=== PATIENT | female | born 1995 | race Caucasian/White ===

== ENCOUNTER → 2019-10-14 17:13 | Outpatient (CLI) | payer OTHER, SELFPAY ==
[2019-10-14 17:54] LABS: Basophils % 0.4 % (0.1-2.0); Eosinophils # 0.2 K/mm3 (0.0-0.4); Eosinophils % 2.1 % (0.1-12.0); Hematocrit 47.3 % (37.0-47.0); Hemoglobin 15.6 g/dL (12.2-16.2); Lymphocytes # 3.6 K/mm3 (0.7-4.5); Lymphocytes % 35.5 % (10-50); Mean Corpuscular HGB Conc 33.1 g/dL (31.8-35.4); Mean Corpuscular Hemoglobin 29.1 pg (27.0-31.2); Mean Corpuscular Volume 87.9 fl (81-99); Mean Platelet Volume 10.2 fl (7.4-10.4); Monocytes # 0.4 K/mm3 (0.1-1.0); Monocytes % 4.3 % (1.7-9.3); Neutrophils # 5.8 K/mm3 (1.8-7.8); Neutrophils % 57.7 % (37.0-80.0); Platelet Count 111 K/mm3 (142-424); Red Blood Count 5.38 M/mm3 (4.20-5.40); White Blood Count 10.1 K/mm3 (4.8-10.8)
== END ==
PROVIDERS: Visit Provider Nurse Practitioner Family
DX: L02.92 Furuncle, unspecified (principal); M79.604 Pain in right leg; M79.605 Pain in left leg
CPT/HCPCS: 36415; 85025

== ENCOUNTER → 2021-08-09 13:16 | Outpatient (CLI) | payer OTHER, SELFPAY ==
--- NOTE | 2021-08-09 13:21 | US_ITS ---
FINAL REPORT CLINICAL HISTORY: confirm dates; maternal obesity FINDINGS: TRANSABDOMINAL ULTRASOUND, Single intrauterine is present. Cardiac activity is confirmed at 155 beats per minute. Appropriate amount of fluid is present. Placenta is posterior. Growth parameters are as follows: BPD: 3.2 cm consistent with 16 weeks 0 days. Head circumference: 11.5 cm consistent with 15 weeks 5 days. Abdominal circumference: 10 cm consistent with 16 weeks 0 days. Femur length: 2.1 cm consistent with 16 weeks 1 day. Estimated gestational age: 16 weeks 0 day. IMPRESSION: Single living IUP with estimated gestational age of 16 weeks 0 day. Reviewed, Interpreted and Dictated by Pedro Peralta MD Transcribed by Rohith Michaels Authenticated by Pedro Peralta MD on 08/09/2021 03:14:[address] [facility]
[2021-08-09 14:27] LABS: Basophils # 0.1 K/mm3 (0-0.2); Basophils % 0.7 % (0.1-2.0); Eosinophils # 0.2 K/mm3 (0.0-0.4); Eosinophils % 1.5 % (0.1-12.0); Hematocrit 40.4 % (37.0-47.0); Hemoglobin 13.3 g/dL (12.2-16.2); Lymphocytes # 3.5 K/mm3 (0.7-4.5); Lymphocytes % 26.3 % (10-50); Mean Corpuscular HGB Conc 32.9 g/dL (31.8-35.4); Mean Corpuscular Hemoglobin 29.6 pg (27.0-31.2); Mean Platelet Volume 10.5 fl (7.4-10.4); Monocytes # 0.4 K/mm3 (0.1-1.0); Monocytes % 3.1 % (1.7-9.3); Neutrophils # 9.2 K/mm3 (1.8-7.8); Neutrophils % 68.4 % (37.0-80.0); Platelet Count 272 K/mm3 (142-424); Red Blood Count 4.49 M/mm3 (4.20-5.40); Red Cell Distribution Width 13.5 % (11.5-17.5); White Blood Count 13.4 K/mm3 (4.8-10.8)
[2021-08-09 15:44] LABS: HCG,Quantitative 11622 mIU/ml (0-5.42)
[2021-08-11 07:32] LABS: HIV Screen 4th Generation wRfx Non Reactive (Non Reactive); Hepatitis B Surface Antigen Negative (Negative); Hepatitis C Antibody >11.0 s/co ratio (0.0-0.9)
[2021-08-11 08:14] LABS: Rubella Antibodies, IgG 1.32 index (Immune >0.99)
[2021-08-11 11:11] LABS: Rapid Plasma Reagin Ab Titer Non Reactive (NonRea<1:1)
== END ==
PROVIDERS: PCP Emergency Medicine; Visit Provider Obstetrics & Gynecology
DX: Z34.90 Encounter for supervision of normal pregnancy, unspecified, unspecified trimester (principal)
CPT/HCPCS: 36415; 76805; 84702; 85025; 86592; 86703; 86762; 86850; 87340; 87380; G0432

== ENCOUNTER 2022-04-07 21:14 | Emergency (ER) | payer OTHER, SELFPAY ==
[2022-04-07 21:15] VITALS: BP 134/75; PULSE 88; RESP 18; TEMP 37.2; O2SAT 97; BMI 43.0
[2022-04-07 21:54] LABS: Influenza A, PCR Not Detected (NotDetected); Influenza B, PCR Not Detected (NotDetected)
--- NOTE | 2022-04-07 22:11 | XR_ITS ---
PROCEDURE INFORMATION: Exam: XR Chest Exam date and time: 04/07/2022 10:43 PM Age: 26 years old Clinical indication: Other: Congestion TECHNIQUE: Imaging protocol: Radiologic exam of the chest. Views: 1 view. COMPARISON: No relevant prior studies available. FINDINGS: Lungs: Unremarkable. No consolidation. Pleural spaces: Unremarkable. No pleural effusion. No pneumothorax. Heart/Mediastinum: Unremarkable. No cardiomegaly. Bones/joints: Unremarkable. IMPRESSION: No acute cardiopulmonary abnormality.
[2022-04-07 22:15] LABS: Coronavirus 19, PCR Detected (NotDetected)
[2022-04-07 22:24] LABS: Microscopic, Urine URINE MICROSCOPIC (MICROSCOPIC)
[2022-04-07 22:28] LABS: Appearance,Urine CLEAR (Clear); Bilirubin,Urine Negative (Negative); Blood, Urine 3+ (Negative); Color,Urine YELLOW (Yellow); Glucose,Urine (UA) Negative (Negative); Ketones,Urine Negative (Negative); Leukocyte Esterase,Urine Negative (Negative); Nitrate,Urine Negative (Negative); PH,Urine 6.5 (5.0-8.5); Protein,Urine Negative (Negative)
[2022-04-07 22:31] LABS: Urine Pregnancy, HCG Qual. Negative (Negative)
[2022-04-07 22:32] LABS: RBC,Urine 20-50 #/hpf (0-3)
--- NOTE | 2022-04-08 00:33 | HMH.EDURI ---
Discharge Plan Disposition Patient Disposition: Home, Self-Care Prescriptions Prescriptions: No Action sumatriptan succinate 50 mg tablet 50 mg PO Q2H PRN (Reason: migraine headache) Qty: 14 0RF Rx Instructions: do not exceed 4 doses per 24 hrs gabapentin 100 mg capsule 200 mg PO TID 30 Days Qty: 180 0RF prednisone 20 mg tablet 20 mg PO BID 5 Days Qty: 10 0RF naproxen 500 mg tablet 500 mg PO BID PRN (Reason: pain) Qty: 28 0RF ondansetron 4 mg tablet,disintegrating 4 mg PO Q4H PRN (Reason: nausea and vomiting) Qty: 30 4RF levonorgestrel-ethinyl estrad 0.1-20 mg-mcg tablet PO DAILY amitriptyline 50 mg tablet 50 mg PO QHS Qty: 30 2RF Referrals Follow up/Referrals: Irma Tiwari APRN [Primary Care Provider] - See instructions Clinical Impressions Clinical Impression: COVID-19 Instructions Patient Instructions: DI for COVID-19 (Suspected or Confirmed ) Discharge ED Provider: Josh Lopez URI/Sore Throat HPI General Chief Complaint: Upper Respiratory Infection Stated Complaint: body aches, runny nose sore throat Time Seen by Provider: 04/08/22 00:34 Mode of Arrival: Ambulatory Source of Information: Patient and Medical Record Limitations: No Limitations Description of Symptoms (Recalled from ER Triage Doc. by RN): pt c/o body aches, NUNEZ, sore throat, congestion that started at 4 this morning History of Present Illness HPI Narrative: achey and sore throat w/o rash with exposure to covid-19 MD Complaint: fever, sore throat and nasal congestion Onset (ago): hour(s) Duration: intermittent Severity: moderate Relieving factors: OTC cold medicine Able to tolerate fluids by mouth: Yes Context: sick contacts Associated symptoms: denies other symptoms Treatments prior to arrival: acetaminophen Related Data Home Medications Medication Instructions Recorded Confirmed levonorgestrel-ethinyl estradiol tab PO DAILY 09/29/19 09/29/19 0.1 mg-20 mcg tablet Previous Rx's Medication Instructions Recorded amitriptyline 50 mg tablet 50 mg PO QHS #30 tabs 09/29/19 gabapentin 100 mg capsule 200 mg PO TID 30 days #180 caps 11/09/19 sumatriptan succinate 50 mg tablet 50 mg PO Q2H PRN migraine headache 11/09/19 #14 tabs naproxen 500 mg tablet 500 mg PO BID PRN pain #28 tabs 11/25/19 prednisone 20 mg tablet 20 mg PO BID 5 days #10 tabs 11/25/19 ondansetron 4 mg disintegrating 4 mg PO Q4H PRN nausea and 08/09/21 tablet vomiting #30 tabs Allergies Allergy/AdvReac Type Severity Reaction Status Date / Time cephalexin Allergy Intermediate NA-NAUSEA/V Unverified 09/29/19 13:09 OMITING codeine Allergy Intermediate I-HIVES Unverified 09/29/19 13:09 PFSH PFSH Social History Smoking Status: Never smoker alcohol intake: never substance use type: denies use current occupational status: unemployed Travel in the last 8 weeks: None ROS Obtained: Yes All systems reviewed & no additional complaints except as documented Physical Exam General General appearance: alert Head Head exam: normocephalic Eye Eye exam: Present PERRL and EOMI ENT ENT exam: Present mucous membranes moist Neck Neck exam: Present trachea midline Respiratory Respiratory exam: Present normal lung sounds bilaterally Cardiovascular Cardiovascular exam: Present regular rate; Absent systolic murmur Abdominal Exam Abdominal exam: Present soft Extremities Exam Extremities exam: Present normal inspection Neurological Exam Neurological exam: Present alert, oriented X3 and CN II-XII intact Psychiatric Psychiatric exam: Present normal affect Skin Skin exam: Absent rash Medical Decision Making Medical Records Medical records reviewed: Yes I reviewed the patient's medical records. Mike Inquiry Pt receiving controlled substance: No Vital Signs: 04/07/22 21:15 04/08/22 01:08 Temperature 98.9 F 98.9 F Temperature Source Oral Oral Pulse Rate 81 Pulse Rate [Right] 88 R
[2022-04-08 01:08] VITALS: BP 124/85; PULSE 81; RESP 18; TEMP 37.2; O2SAT 97
== END 2022-04-08 01:08 | disposition home or self-care (01) ==
PROVIDERS: Emergency Provider Emergency Medicine; PCP Nurse Practitioner Family
DX: U07.1 COVID-19 (principal); R51.9 Headache, unspecified; J02.9 Acute pharyngitis, unspecified
CPT/HCPCS: 71045; 81001; 81025; 99283; C9803; U0003; U0005

== ENCOUNTER 2023-09-25 18:29 | Outpatient (CLI) | payer OTHER, SELFPAY ==
[2023-09-25 18:47] VITALS: BMI 50.3
[2023-09-25 18:56] LABS: Microscopic, Urine URINE MICROSCOPIC (MICROSCOPIC)
[2023-09-25 18:59] LABS: Appearance,Urine SL CLOUDY (Clear); Bilirubin,Urine Negative (Negative); Blood, Urine Negative (Negative); Color,Urine YELLOW (Yellow); Glucose,Urine (UA) Negative (Negative); Ketones,Urine Negative (Negative); Leukocyte Esterase,Urine TRACE (Negative); Nitrate,Urine Negative (Negative); PH,Urine 6.5 (5.0-8.5); Protein,Urine Negative (Negative); Specific Gravity, Urine 1.025 (1.005-1.030)
[2023-09-25 19:18] VITALS: BP 137/77; PULSE 96; RESP 18; TEMP 37; O2SAT 96; BMI 53.6
[2023-09-25 19:22] LABS: Amphetamine/Metha Screen,Urine Negative ng/ml (<1000)
[2023-09-25 19:23] LABS: Barbiturates Screen,Urine Negative ng/ml (<200)
[2023-09-25 19:24] LABS: Benzodiazepines Screen,Urine Negative ng/ml (<200)
[2023-09-25 19:26] LABS: Amorphous Sediment,Urine 1+ /lpf; Bacteria,Urine Trace /lpf; Cannabinoid Screen,Urine Negative ng/ml (<50); WBC,Urine Occasional #/hpf (0-3)
[2023-09-25 19:27] LABS: Cocaine Screen,Urine Negative ng/ml (<300); Methadone Screen,Urine Negative ng/ml (<300)
[2023-09-25 19:28] LABS: Opiate Screen,Urine Negative ng/ml (<300)
[2023-09-25 19:29] LABS: Phencyclidine Screen,Urine Negative ng/ml (<25)
== END 2023-09-25 19:58 | disposition home or self-care (01) ==
LOC: OBOUT 18:32 → OB 18:33
PROVIDERS: PCP Nurse Practitioner Family; Visit Provider Obstetrics & Gynecology
DX: O13.2 Gestational [pregnancy-induced] hypertension without significant proteinuria, second trimester (principal); Z3A.24 24 weeks gestation of pregnancy
CPT/HCPCS: 80307; 81001; G0463

== ENCOUNTER 2024-04-23 15:40 | Emergency (ER) | payer OTHER, SELFPAY ==
[2024-04-23 15:42] VITALS: BP 144/81; PULSE 72; RESP 18; TEMP 36.6; O2SAT 99; BMI 36.2
--- NOTE | 2024-04-23 16:35 | HMH.EDGENADL ---
Discharge Plan Disposition Patient Disposition: Home, Self-Care Condition: Good Prescriptions Prescriptions: New naproxen 500 mg tablet 500 mg PO BID Qty: 20 0RF lidocaine [Lidoderm] 5 % adhesive patch,medicated 1 patch topical DAILY Qty: 15 0RF Rx Instructions: leave on most painful area for up to 12 hrs No Action sumatriptan succinate 50 mg tablet 50 mg PO Q2H PRN (Reason: migraine headache) Qty: 14 0RF Rx Instructions: do not exceed 4 doses per 24 hrs gabapentin 100 mg capsule 200 mg PO TID 30 Days Qty: 180 0RF prednisone 20 mg tablet 20 mg PO BID 5 Days Qty: 10 0RF naproxen 500 mg tablet 500 mg PO BID PRN (Reason: pain) Qty: 28 0RF ondansetron 4 mg tablet,disintegrating 4 mg PO Q4H PRN (Reason: nausea and vomiting) Qty: 30 4RF levonorgestrel-ethinyl estrad 0.1-20 mg-mcg tablet PO DAILY amitriptyline 50 mg tablet 50 mg PO QHS Qty: 30 2RF Referrals Follow up/Referrals: Irma Tiwari APRN [Primary Care Provider] - See instructions Activity Restrictions/Add. Instructions Additional Instructions/Restrictions: You were evaluated in the emergency department today. Please molded goods spot picker your prescriptions at the pharmacy. You may also take Tylenol for 4 to 6 hours as needed for pain. Return to the emergency department for new or worsening symptoms. Follow-up with your primary care provider. Clinical Impressions Clinical Impression: Pain at injection site Stand Alone Forms Stand Alone Forms: Work/School Release Print Language Print Language: Marshallese Discharge ED Provider: Isabel Lama General Adult HPI General Chief complaint: Skin/Abscess/Foreign Body Stated complaint: Left hip pain,had Depo injestion 04/22/24 Time Seen by Provider: 04/23/24 16:06 Mode of Arrival: Ambulatory Source of Information: Patient Limitations: No Limitations Description of Symptoms (Recalled from ER Triage Doc. by RN): pain in injection site of depo shot History of Present Illness HPI narrative: This patient is a 28-year-old female with a history of obesity presenting to the emergency department for evaluation with concern for pain in her left hip after head Depo shot yesterday afternoon. She reports that she gets some all the time and has been on this for a long time, but yesterday they injected much higher than they typically do. She is not having pain in her left hip joint, especially with walking. She states that it woke her up from sleep. She denies fevers, chills, skin color changes, numbness, tingling, or radiation of pain. Related Data Home Medications ?Medication ?Instructions ?Recorded ?Confirmed levonorgestrel-ethinyl estradiol tab PO DAILY 09/29/19 09/29/19 0.1 mg-20 mcg tablet Previous Rx's ?Medication ?Instructions ?Recorded amitriptyline 50 mg tablet 50 mg PO QHS #30 tabs 09/29/19 gabapentin 100 mg capsule 200 mg (2 x 100 mg) PO TID 30 days 11/09/19 #180 caps sumatriptan succinate 50 mg tablet 50 mg PO Q2H PRN migraine headache 11/09/19 #14 tabs naproxen 500 mg tablet 500 mg PO BID PRN pain #28 tabs 11/25/19 prednisone 20 mg tablet 20 mg PO BID 5 days #10 tabs 11/25/19 ondansetron 4 mg disintegrating 4 mg PO Q4H PRN nausea and 08/09/21 tablet vomiting #30 tabs lidocaine 5 % topical patch 1 patch topical DAILY #15 ea 04/23/24 (Lidoderm) naproxen 500 mg tablet 500 mg PO BID #20 tabs 04/23/24 Allergies Allergy/AdvReac Type Severity Reaction Status Date / Time cephalexin Allergy Intermediate NA-NAUSEA/V Unverified 09/29/19 13:09 OMITING codeine Allergy Intermediate I-HIVES Unverified 09/29/19 13:09 [facility] Disclaimer: The information contained in this section may have been updated after the patient was seen, as this information can be updated by other users. Social History Smoking Status: Current every day smoker tobacco type: cigarettes packs per day: 1 alcohol intake: never substance use type: denies use current occupational status: unemployed Travel in the last 8 weeks: None ROS Obtained: Yes All systems reviewed & no additional complaints except as documented Physical Exam General General appearance: alert and in no apparent distress Head Head exam: atraumatic and normocephalic Eye Eye exam: Present normal appearance, PERRL and EOMI ENT ENT exam: Present normal exam, normal oropharynx, mucous membranes moist and normal external ear exam Neck Neck exam: Present normal inspection, full ROM and trachea midline; Absent tenderness Chest Chest inspection: Present normal inspection and symmetric chest wall rise; Absent tenderness Respiratory Respiratory exam: Present normal lung sounds bilaterally; Absent respiratory distress, wheezes, stridor or accessory muscle use Cardiovascular Cardiovascular exam: Present regular rate and normal rhythm Abdominal Exam Abdominal exam: Present soft; Absent distention, tenderness or guarding Extremities Exam Extremities exam: Present full ROM, tenderness (Tenderness to palpation of the left hip at injection site just above the iliac crest) and normal capillary refill; Absent edema Back Exam Back exam: Present normal inspection and full ROM; Absent tenderness Neurological Exam Neurological exam: Present alert, oriented X3, CN II-XII intact and normal gait; Absent motor sensory deficit Psychiatric Psychiatric exam: Present normal affect and normal mood Skin Skin exam: Present warm and dry Medical Decision Making Medical Records Medical records reviewed: Yes I reviewed the patient's medical records. Screening: Per USPSTF and CDC recommendations, given the prevalence of disease in our region, it is our hospital?s policy to screen for HIV and viral Hepatitis for all patients aged 18 and over and those with ongoing risk factors. Mike Inquiry Pt receiving controlled substance: No Vital Signs: 04/23/24 15:42 04/23/24 17:05 Temperature 97.9 F 97.9 F Temperature Source Oral Oral Pulse Rate 70 Pulse Rate [Right] 72 Respiratory Rate 18 18 Blood Pressure 140/78 Blood Pressure [Right Arm] 144/81 H Blood Pressure Mean [Right Arm] 102 Blood Pressure Source Automatic Cuff Blood Pressure Position Sitting 02 Sat by Pulse Oximetry 99 Oxygen Delivery Method Room Air Room Air Lab Data Lab results reviewed: Yes I reviewed the patient's lab results. Orders (Tests/Meds): ED MEDICATIONS Discontinued Medications Generic Name Dose Route Start Last Admin Trade Name Freq PRN Reason Stop Dose Admin Acetaminophen 1,000 mg 04/23/24 16:26 04/23/24 16:48 Acetaminophen 500mg Tab PO 04/23/24 16:27 1,000 mg ONCE ONE Administration Lidocaine 1 each 04/23/24 16:26 04/23/24 16:48 Lidocaine 5% Transdermal Patch TP 04/23/24 16:27 1 each ONCE ONE Administration Naproxen 500 mg 04/23/24 16:27 04/23/24 16:48 Naproxen 500mg Tablet PO 04/23/24 16:28 500 mg ONCE ONE Administration Medical Decision Narrative: In summary, this patient is a 28-year-old female presenting to the Emergency Department for evaluation of left hip pain after Depo shot. Differential diagnoses considered include but are not limited to localized inflammation, improper site injection, nerve injury. Ruling out the most morbid conditions drove assessment. On exam, the patient is very well-appearing. She still able to bear weight on her left hip and has intact range of motion, which suggests against septic arthritis or other acute pathology of the hip. I feel she likely has referred pain from site injection, as it appears to have been above her gluteus and her subcutaneous tissue. Exam is reassuring with no significant redness, warmth, or skin color changes. Ultimately, I feel that she is appropriate for discharge home with anti-inflammatories to treat localized pain. She was given instructions for supportive management, strict return precautions, and she was discharged after all questions were answered. Critical Care Critical Care Time Critical Care Time: No
[2024-04-23] MEDS: LIDOCAINE 5% TRANSDERMAL PATCH 1 EACH TP (16:48)
[2024-04-23] MEDS: ACETAMINOPHEN 500MG TAB 1000 MG PO (16:48)
[2024-04-23] MEDS: NAPROXEN 500MG TABLET 500 MG PO (16:48)
[2024-04-23 17:05] VITALS: BP 140/78; PULSE 70; RESP 18; TEMP 36.6; O2SAT 100
== END 2024-04-23 17:08 | disposition home or self-care (01) ==
PROVIDERS: Emergency Provider Emergency Medicine; PCP Nurse Practitioner Family
DX: T80.89XA Other complications following infusion, transfusion and therapeutic injection, initial encounter (principal); M25.552 Pain in left hip
CPT/HCPCS: 99283

== ENCOUNTER 2024-11-01 17:50 | Emergency (ER) | payer OTHER, SELFPAY ==
[2024-11-01 17:55] VITALS: BP 136/97; PULSE 71; RESP 16; TEMP 36.8; O2SAT 97; BMI 52.7
--- NOTE | 2024-11-01 17:59 | ED_ITS ---
<Statement entered by Lui Mensah MD - 11/01/24 23:19> I was consulted by the DA, and we discussed the complexity of the problems being addressed. I approved the treatment and management plan for this patient's care in the emergency department, thus performing a substantive portion of the medical decision making. Lui Mensah MD Discharge Plan Disposition Patient Disposition: Home, Self-Care Condition: Good Prescriptions Prescriptions: New amoxicillin-pot clavulanate 875-125 mg tablet 1 tab PO BID Qty: 20 0RF No Action sumatriptan succinate 50 mg tablet 50 mg PO Q2H PRN (Reason: migraine headache) Qty: 14 0RF Rx Instructions: do not exceed 4 doses per 24 hrs gabapentin 100 mg capsule 200 mg PO TID 30 Days Qty: 180 0RF prednisone 20 mg tablet 20 mg PO BID 5 Days Qty: 10 0RF naproxen 500 mg tablet 500 mg PO BID PRN (Reason: pain) Qty: 28 0RF ondansetron 4 mg tablet,disintegrating 4 mg PO Q4H PRN (Reason: nausea and vomiting) Qty: 30 4RF levonorgestrel-ethinyl estrad 0.1-20 mg-mcg tablet PO DAILY amitriptyline 50 mg tablet 50 mg PO QHS Qty: 30 2RF naproxen 500 mg tablet 500 mg PO BID Qty: 20 0RF lidocaine [Lidoderm] 5 % adhesive patch,medicated 1 patch topical DAILY Qty: 15 0RF Rx Instructions: leave on most painful area for up to 12 hrs Referrals Follow up/Referrals: Provider,Referral, [Primary Care Provider] - See instructions Activity Restrictions/Add. Instructions Additional Instructions/Restrictions: As we discussed I have sent in a prescription into your pharmacy. You need to establish care with dentistry for definitive management of your broken tooth. If you have any continued new or worsening signs or symptoms follow-up with your PCP return to the ER as needed. Clinical Impressions Clinical Impression: Dentalgia, Acute lymphadenitis Print Language Print Language: Lithuanian Discharge ED Provider: Lui Mensah General Adult HPI General Chief complaint: Dental/Oral Stated complaint: tooth pain with redness and swollen left jaw Time Seen by Provider: 11/01/24 17:59 Mode of Arrival: Ambulatory Description of Symptoms (Recalled from ER Triage Doc. by RN): Pt presents for evaluation of dental pain and swelling to her gum. Pt states she has had a cracked tooth x 3 years. Last night she developed swelling to her left upper gum and states it is draining. History of Present Illness HPI narrative: Patient presents for dentalgia. Patient presents for acute pain and swelling of her left lower jaw. Patient has a 3-year history of a cracked rear molar after dental procedure. She reports she started having pain and swelling and presents today for evaluation. Patient denies any difficulty swallowing muffled voice chest pain fever chills hemoptysis hematochezia melena shortness of breath nausea vomiting diarrhea. Related Data Home Medications ?Medication ?Instructions ?Recorded ?Confirmed levonorgestrel-ethinyl estradiol tab PO DAILY 09/29/19 09/29/19 0.1 mg-20 mcg tablet Previous Rx's ?Medication ?Instructions ?Recorded amitriptyline 50 mg tablet 50 mg PO QHS #30 tabs 09/29/19 gabapentin 100 mg capsule 200 mg (2 x 100 mg) PO TID 30 days 11/09/19 #180 caps sumatriptan succinate 50 mg tablet 50 mg PO Q2H PRN migraine headache 11/09/19 #14 tabs naproxen 500 mg tablet 500 mg PO BID PRN pain #28 tabs 11/25/19 prednisone 20 mg tablet 20 mg PO BID 5 days #10 tabs 11/25/19 ondansetron 4 mg disintegrating 4 mg PO Q4H PRN nausea and 08/09/21 tablet vomiting #30 tabs lidocaine 5 % topical patch 1 patch topical DAILY #15 ea 04/23/24 (Lidoderm) naproxen 500 mg tablet 500 mg PO BID #20 tabs 04/23/24 amoxicillin 875 mg-potassium 1 tab PO BID #20 tabs 11/01/24 clavulanate 125 mg tablet Allergies Allergy/AdvReac Type Severity Reaction Status Date / Time cephalexin Allergy Intermediate NA-NAUSEA/V Verified 11/01/24 18:29 OMITING codeine Allergy Intermediate I-HIVES Verified 11/01/24 18:29 [facility] Disclaimer: The information contained in this section may have been updated after the patient was seen, as this information can be updated by other users. Social History Smoking Status: Current every day smoker tobacco type: cigarettes packs per day: 1 alcohol intake: never substance use type: denies use current occupational status: unemployed Travel in the last 8 weeks: None Have you lived/traveled outside [place] in past 30 days?: No Contact w/someone who lives/traveled outside US past 30 days?: No Exposure to someone with infectious disease in past 14 days?: No Do you have a fever (greater than 100.4 F or 38 C)?: No Have you tested positive for COVID-19: No Exposed to someone with COVID-19 in past 14 days?: No Do you have a sore throat?: No Do you have a cough?: No Do you have any weakness?: No Do you have any diarrhea?: No Are you experiencing any unusual bleeding?: No Do you have any muscle aches/pain?: No Do you have any abdominal pain?: No Are you experiencing loss of taste or smell?: No Other Medical History Have you received the Flu Vaccine for this season: No Have you received the Pneumonia Vaccine: No ROS Obtained: Yes Systems reviewed as appropriate & no additional complaints except as documented Physical Exam General General appearance: alert and in no apparent distress Respiratory Respiratory exam: Present normal lung sounds bilaterally Cardiovascular Cardiovascular exam: Present regular rate Neurological Exam Neurological exam: Present alert and oriented X3 Medical Decision Making Medical Records Medical records reviewed: Yes I reviewed the patient's medical records. Screening: Per USPSTF and CDC recommendations, given the prevalence of disease in our region, it is our hospital?s policy to screen for HIV and viral Hepatitis for all patients aged 18 and over and those with ongoing risk factors. Mike Inquiry Pt receiving controlled substance: No Vital Signs: 11/01/24 17:55 11/01/24 18:51 Temperature 98.3 F 98.0 F Temperature Source Oral Pulse Rate 80 Pulse Rate [Right] 71 Respiratory Rate 16 16 Blood Pressure 137/79 Blood Pressure [Right Arm] 136/97 H Blood Pressure Mean [Right Arm] 110 Blood Pressure Source [Right Arm] Automatic Cuff Blood Pressure Position [Right Arm] Sitting 02 Sat by Pulse Oximetry 97 Oxygen Delivery Method Room Air Orders (Tests/Meds): ED MEDICATIONS Discontinued Medications Generic Name Dose Route Start Last Admin Trade Name Freq PRN Reason Stop Dose Admin Amoxicillin/Clavulanate Potassium 1 each 11/01/24 18:22 11/01/24 18:32 Amoxicillin/Clavulanate Potassium 875/125mg Tablet PO 11/01/24 18:23 1 each ONCE ONE Administration Lidocaine HCl 15 ml 11/01/24 18:22 11/01/24 18:33 Lidocaine 2% Viscous Kristin 15ml Udc PO 11/01/24 18:23 15 ml ONCE ONE Administration Medical Decision Narrative: In summary patient is a 28-year-old female who presents to the emergency department for evaluation of left lower jaw dentalgia. Patient is hemodynamically stable upon arrival, afebrile. Physical exam is remarkable for lymphadenopathy in the submental area and along the anterior cervical chain. Examination of oropharynx reveals normal tongue protrusion soft floor of the mouth she has erythema and some swelling in the buccal recess of the left jaw in the lower area but there is no palpable fluctuance or fluid collection.. Differential diagnosis includes periapical abscess versus gingivitis versus cellulitis however patient has no red flags including Lul's angina posterior pharynx is patent with normal breath sounds no stridor she is tolerating secretions thus peritonsillar abscess was considered but not pursued.. Initial workup was considered with labs and imaging however patient is hemodynamically stable afebrile and has no red flags suggesting deep space or deep neck abscess thus deferred. Initial interventions include dental balls. . Given this patient is appropriate for discharge with a prescription for Augmentin with first dose given here and the aforementioned dental balls. Patient advised to follow-up with a dentist as soon as possible for ongoing management and care and given strict return precautions. Critical Care Critical Care Time Critical Care Time: No
[2024-11-01] MEDS: AMOXICILLIN/CLAVULANATE POTASSIUM 875/125MG TABLET 1 EACH PO (18:32)
[2024-11-01] MEDS: LIDOCAINE 2% VISCOUS SOL 15ML UDC 15 ML PO (18:33)
[2024-11-01 18:51] VITALS: BP 137/79; PULSE 80; RESP 16; TEMP 36.7; O2SAT 98
== END 2024-11-01 18:52 | disposition home or self-care (01) ==
PROVIDERS: Emergency Provider Emergency Medicine
DX: L04.9 Acute lymphadenitis, unspecified (principal); K08.89 Other specified disorders of teeth and supporting structures; F17.210 Nicotine dependence, cigarettes, uncomplicated
CPT/HCPCS: 99283

== ENCOUNTER 2025-08-03 13:20 | Outpatient (CLI) | payer OTHER, SELFPAY ==
--- OUTSIDE RECORDS SUMMARY | 2025-08-03 13:24 | XMS_ITS | Encounter Summary ---
Author Organization Healthcare Address [address] [place] [address] Care Team Providers Care Passenger Train Braker Name Role Phone Star Cheung MD Primary Care Provid er Encounter Details Date Type Department Care Team (Late st Contact Info) Description 09/11/2023 Community Orders Community [facility] [address] [place] [address] Amie Calvillo MD [address] [facility] [place] [address] Body mass index (BMI) of 50-59.9 in adult (CMS/HCC) (Primary Dx); Personal history of gestational diabetes Social History Tobacco Use Types Packs/Day Years Used Date Smoking Tobacco: Never Assessed Comments Unknown Sex and Gender Information Value Date Recorded Sex Assigned at Not on file Legal Sex Female 6:06 PM EDT Gender Identity Not on file Sexual Orientation Not on file documented as of this encounter Plan of Treatment Not on file documented as of this encounter Visit Diagnoses Diagnosis Body mass index (BMI) of 50-59.9 in adult- Primary Personal history of gestational diabetes documented in this encounter Care Teams Passenger Train Braker Relationship Specialty Start Date End Date Star Cheung MD [address] [place] [address] PCP - General 12/16/20 documented as of this encounter
--- OUTSIDE RECORDS SUMMARY | 2025-08-03 13:24 | XMS_ITS | Encounter Summary ---
Author Organization Healthcare Address [address] [place] [address] Care Team Providers Care Supervisor Carpenters Name Role Phone Star Cheung MD Primary Care Provid er Encounter Details Date Type Department Care Team (Late st Contact Info) Description 10/30/2023 Community Orders [facility] [address] [place] [address] Trudy Shrestha [address] [place] [address] Personal history of gestational diabetes (Primary Dx); Body mass index (BMI) of 50-59.9 in adult (CMS/HCC) Social History Tobacco Use Types Packs/Day Years Used Date Smoking Tobacco: Never Assessed Comments Unknown Sex and Gender Information Value Date Recorded Sex Assigned at Not on file Legal Sex Female 6:06 PM EDT Gender Identity Not on file Sexual Orientation Not on file documented as of this encounter Plan of Treatment Not on file documented as of this encounter Visit Diagnoses Diagnosis Personal history of gestational diabetes- Primary Body mass index (BMI) of 50-59.9 in adult documented in this encounter Care Teams Supervisor Carpenters Relationship Specialty Start Date End Date Star Cheung MD [address] [place] [address] PCP - General 12/16/20 documented as of this encounter
--- OUTSIDE RECORDS SUMMARY | 2025-08-03 13:24 | XMS_ITS | Encounter Summary ---
Author Organization Healthcare Address [address] [place] [address] Care Team Providers Care Field Project Manager Name Role Phone Star Cheung MD Primary Care Provid er Encounter Details Date Type Department Care Team (Late st Contact Info) Description 11/27/2023 Community [facility] [address] [place] [address] [place] [address] Body mass index 50.0-59.9, adult (CMS/HCC) (Primary Dx) Social History Tobacco Use Types Packs/Day Years [...] encounter Visit Diagnoses Diagnosis Body mass index 50.0-59.9, adult- Primary Body Mass Index 50.0-59.9, adult documented in this encounter Additional Health Concerns Assessment Noted Time A Body Mass Index follow-up plan has been documented for the patient 11/01/2023 5:50 AM EDT documented as of this encounter Care Teams Field Project Manager Relationship Specialty Start Date End Date Star Cheung MD [address] [place] [address] PCP - General 12/16/20 documented as of this encounter
--- OUTSIDE RECORDS SUMMARY | 2025-08-03 13:24 | XMS_ITS | Clinical Summary ---
Author Organization Healthcare Address [address] [place] [address] Care Team Providers Care Net Sorter Name Role Phone Star Cheung MD Primary Care Provid er Social History Tobacco Use Types Packs/Day Years Used Date Smoking Tobacco: Never Assessed Comments Unknown Sex and Gender Information Value Date Recorded Sex Assigned at Not on file Legal Sex Female 6:06 PM EDT Gender Identity Not on file Sexual Orientation Not on file Plan of Treatment Health Maintenance Due Date Last Done Comments [facility]-Depression Screening 1995 [facility]-HIV Screening 1995 [facility]-Hepatitis C Screening 1995 [facility]-Infant/Child/Adol SDOH Screenings 1995 [facility]-Hepatitis B Vaccines (2 of 3 - 3-dose series) 08/31/1996 08/03/1996 [facility]-Varicella Vaccines (1 of 2 - 13+ 2-dose series) 12/25/2008 [facility]- SDOH Screenings 12/25/2013 [facility]-Adult SDOH Screenings 12/25/2013 [facility]-Pap Smear 12/25/2016 [id number] Vaccine ( season) 2025 [facility]-Influenza Vaccine (#1) 2025 09/24/2013, [facility]-DTaP,Tdap,and Td Vaccines (13 - Td or Tdap) 11/13/2033 11/14/2023, 11/08/2021, 10/27/2018, Additional history exists [facility]-Zoster Vaccines (1 of 2) 12/25/2045 [facility]-HIB Vaccines Completed 04/02/1997, 05/1997, 08/03/1996, Additional history exists [facility]-IPV Vaccines Completed 03/27/2000, 05/1997, 08/03/1996, Additional history exists HPV Vaccines (No Doses Required) Completed [facility]-Hepatitis A Vaccines Aged Out No longer eligible based on patient's age to complete this topic [facility]-Pneumococcal Vaccine: Pediatrics (0 to 5 Years) and At-Risk Patients (6 to 49 Years) Aged Out No longer eligible based on patient's age to complete this topic [facility]-Rotavirus Vaccines Aged Out No lo nger eligible based on patient's age to complete this topic Insurance [employer] [facility] [employer] Care Teams Net Sorter Relationship Specialty Start Date End Date Star Cheung MD [address] [place] [address] PCP - General 12/16/20
[2025-08-03 14:08] LABS: Hematocrit 49.8 % (37.0-47.0); Hemoglobin 15.8 g/dL (12.2-16.2); Immature Granulocytes % 0.1 %; Mean Corpuscular HGB Conc 31.7 g/dL (31.8-35.4); Mean Corpuscular Hemoglobin 28.0 pg (27.0-31.2); Mean Corpuscular Volume 88.3 fl (81-99); Nucleated Red Blood Cells % 0 %; Platelet Count 215 K/mm3 (142-424); Red Blood Count 5.64 M/mm3 (4.20-5.40); Red Cell Distribution Width-SD 42.4 fL; White Blood Count 7.7 K/mm3 (4.8-10.8)
[2025-08-03 14:26] LABS: Amphetamine/Metha Screen,Urine Negative ng/ml (<1000)
[2025-08-03 14:27] LABS: Barbiturates Screen,Urine Negative ng/ml (<200); Benzodiazepines Screen,Urine Negative ng/ml (<200)
[2025-08-03 14:29] LABS: Methadone Screen,Urine Negative ng/ml (<300)
[2025-08-03 14:30] LABS: Opiate Screen,Urine Negative ng/ml (<300); Phencyclidine Screen,Urine Negative ng/ml (<25)
[2025-08-03 14:50] LABS: Alanine Aminotransferase 45 U/L (12-78); Albumin Level 4.4 g/dl (3.5-5.0); Albumin/Globulin Ratio 2.1 (1.1-1.8); Alkaline Phosphatase 63 U/L (38-126); Anion Gap 11.1 mEq/L (5-15); Aspartate Amino Transferase 32 U/L (14-36); Bilirubin,Total 0.5 mg/dl (0.2-1.3); Blood Urea Nitrogen 15 mg/dl (7-17); Calcium 9.1 mg/dl (8.4-10.2); Carbon Dioxide 26 mmol/L (22.0-30.0); Chloride 108 mmol/L (98-107); Cholesterol 174 mg/dl (140-200); Creatinine,Serum 0.70 mg/dl (0.52-1.04); Estimated Glomerular Filt Rate 99 ml/min (>60); GFR (African American) 120 ML/MIN (>60); Globulin 2.1 g/dL (1.3-3.2); Glucose 96 mg/dl (74-100); HDL Cholesterol 25 mg/dl (40-60); Potassium 4.1 mmoL/L (3.5-5.1); Sodium 141 mmol/L (136-145); Total Protein,Serum 6.5 g/dl (6.3-8.2); Triglycerides 196 mg/dl (30-150)
== END 2025-08-03 23:59 | disposition home or self-care (01) ==
LOC: LAB 13:21
PROVIDERS: PCP Internal Medicine Addiction Medicine; Visit Provider Internal Medicine Addiction Medicine
DX: Z00.00 Encounter for general adult medical examination without abnormal findings (principal)
CPT/HCPCS: 36415; 80053; 80061; 80307; 85025